=== PATIENT | female | born 1995 | race Caucasian/White ===

== ENCOUNTER 2016-09-02 18:10 | Emergency (ER) | payer OTHER ==
[2016-09-02] MEDS ORDERED: IBUPROFEN 600 MG TAB PO ONE (18:48)
[2016-09-02 18:51] VITALS: RESP 16; TEMP 97.9
[2016-09-02] MEDS ORDERED: IBUPROFEN 800 MG TAB PO ONE (18:51)
--- NOTE | 2016-09-02 18:51 | EDPHY ---
H & P Time Seen by Provider: 09/02/16 18:50 HPI/ROS: 21-year-old female presents complaining of twisted her foot while walking down some slippery stairs on her way to work. She complains of pain in both her foot and ankle on the left. Later upon discharging patient she denied having ever stated that she had pain in her ankle. Review of systems As per HPI General no fever no chills no weakness HEENT no eye pain no eye discharge. No eye redness, no sore throat Respiratory no cough, no shortness of breath Cardiac no chest pain, no peripheral edema GI no abdominal pain, no diarrhea, no constipation, no nausea, no vomiting no flank pain, no hematuria, no dysuria Musculoskeletal no myalgias, positive joint pain Heme no easy bruising, no easy bleeding Endo no polyuria, no polydipsia Skin no rashes, no pruritus Neuro no syncope, no dizziness, no headaches Psych is no suicidal ideation, no homicidal ideation Past Medical/Surgical History: Noncontributory Social History: Noncontributory Smoking Status: Never smoked Physical Exam: 21-year-old female alert and oriented no acute distress nontoxic appearance Atraumatic normocephalic No respiratory distress Extremity Left foot Positive bruising to left proximal lateral foot overlying 5th metatarsal Mild tenderness to palpation at 5th metatarsal as well as inferior to left lateral malleolus Good capillary refill No gross instability Constitutional: Initial Vital Signs Temperature (C) 36.6 C 09/02/16 18:49 Heart Rate 84 09/02/16 18:49 Respiratory Rate 16 09/02/16 18:49 Blood Pressure 114/75 09/02/16 18:49 O2 Sat (%) 99 09/02/16 18:49 O2 Delivery Mode Room Air Allergies/Adverse Reactions: No Known Allergies Allergy (Verified 09/02/16 19:01) Home Medications: Medication Instructions Recorded Escitalopram Oxalate [Lexapro] 09/02/16 Ethinyl Estradiol/Drospirenone 09/02/16 [Iwona 28 Tablet] Omeprazole 20 mg PO 09/02/16 Medical Decision Making - Diagnostics Imaging Results: Imaging Impressions Ankle X-Ray 09/02/16 18:51 Impression: Normal. LEFT ANKLE (2 Views, at 7:16 PM): There is no acute fracture, dislocation, or ankle joint effusion. The talar dome is well-contoured. The subtalar joint is normal. Impression: Normal. Findings were discussed with Tita Guardado MD at 20:20, on 09/02/2016. Foot X-Ray 09/02/16 18:52 Impression: Normal. LEFT ANKLE (2 Views, at 7:16 PM): There is no acute fracture, dislocation, or ankle joint effusion. The talar dome is well-contoured. The subtalar joint is normal. Impression: Normal. Findings were discussed with Tita Guardado MD at 20:20, on 09/02/2016. ED Course/Re-evaluation: Medical decision making and ER course Patient seen and evaluated for left foot injury/pain Left foot x-ray negative for fracture Left ankle x-ray negative for fracture negative for joint effusion Physical exam significant for bruising over proximal 5th metatarsal Patient stated she had significant pain on weight-bearing and was therefore offered walker boot for more support. Impression Left foot and ankle sprain Plan Walker boot, crutches Follow up with primary care physician rest ice elevation May increase activity daily as tolerated - Data Points Medications Given: Discontinued Medications Ibuprofen (Motrin) 800 mg PO EDNOW ONE Stop: 09/02/16 18:52 Last Admin: 09/02/16 18:52 Dose: 800 mg Departure - Departure Disposition: Home, Routine, Self-Care Clinical Impression: Sprain of left foot, Ankle sprain Condition: Good Instructions: Ankle Sprain (ED), Foot Sprain (ED) Additional Instructions: Use the special boot and crutches to avoid bearing weight on your left foot and ankle Rest, ice, elevation Today do not bear weight In 1-2 days you may touchdown lightly Each day you may increase use your left foot and ankle It is likely you will only need a crutches for 1 or 2 days Follow-up with your primary care physician if not improving Referrals: BRENDAN JOHNS [Other] - As per Instructions Stand Alone Forms: Work Excuse
[2016-09-02 21:00] VITALS: BP 145/110; PULSE 93; O2SAT 96
== END 2016-09-02 20:30 | disposition home or self-care (01) ==
LOC: CED 18:10
DX: S93.602A Unspecified sprain of left foot, initial encounter (principal); S93.402A Sprain of unspecified ligament of left ankle, initial encounter; W10.8XXA Fall (on) (from) other stairs and steps, initial encounter; Y92.89 Other specified places as the place of occurrence of the external cause; Y99.8 Other external cause status; Y93.01 Activity, walking, marching and hiking
CPT/HCPCS: 73600-PO; 73630-PO; L4386